=== PATIENT | male | born 1965 | race Caucasian/White ===

== ENCOUNTER 2021-02-01 10:14 | Emergency (ER) | payer OTHER ==
[~2021-02-01] VITALS: Ht 188 cm; Wt 73.5 kg
--- OUTSIDE RECORDS SUMMARY | 2021-02-01 10:18 | XMS ---
PreManage Notification: ROGER MARTINEZ Security Price Analyst Events No recent Security Events currently on file CRITERIA MET - SUDHIRP CARE PROVIDERS CELESTINE BONILLA Internal Medicine Current PHONE: Unknown Ramon has no Care Guidelines for this patient. EDeven VISIT COUNT (12 MO.) 1 RADHA Palumbo TOTAL 1 NOTE: Visits indicate total known visits. ED/UCC VISIT TRACKING (12 MO.) 02/01/2021 10:15 RADHA Hernandez OR TYPE: Emergency COMPLAINT: - LUMP IN CHEST, DIFFICULTY BREATHING, PAIN INPATIENT VISIT TRACKING (12 MO.) No inpatient visits to display in this time frame [email or web address]
== END 2021-02-01 14:23 | disposition home or self-care (01) ==
LOC: ED 10:14
DX: R07.89 Other chest pain (principal); R23.3 Spontaneous ecchymoses; I10 Essential (primary) hypertension
CPT/HCPCS: 71046; 80053; 85025; 99285-25

== ENCOUNTER 2023-01-08 05:40 | Day surgery (SDC) | payer MEDICARE ==
[2023-01-06 08:04] VITALS: BP 164/92
[~2023-01-08] VITALS: Ht 188 cm; Wt 75.9 kg
[~2023-01-08 05:40] MED LIST: CYCLOBENZAPRINE10 MG PO; HYDROCODON-ACE1 EA10 PO; LAMICTAL100 MG PO; NEURONTIN100 MG PO; NORVASC10 MG PO
[2023-01-08 05:58] VITALS: BP 165/97
[2023-01-08 08:12] VITALS: BP 150/98
--- NOTE | 2023-01-08 13:59 | OR ---
[facility] [address], [place] [address] Signed DATE OF OPERATION: 01/08/2023 SURGEON: Ovidio Roberts MD PREOPERATIVE DIAGNOSIS: Screening. POSTOPERATIVE DIAGNOSIS: Moderate internal hemorrhoids. PROCEDURE: Colonoscopy with hot biopsy. ESTIMATED BLOOD LOSS: None. INDICATIONS FOR THE PROCEDURE: Roger is a 57-year-old gentleman, who has moved out to [place], [place] from the [place] area. He was asked to see me by his doctor in [place] to come for his initial screening colonoscopy. He has no lower GI complaints. There is no family history of colon cancer or polyps. Apparently, he has had some weight loss. In the office, I gave him a pamphlet on colonoscopy. We had reviewed it together. There is risk including, but not limited to gas bloating, crampy abdominal pain, bleeding, perforation requiring surgery, and missed diagnosis. 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 He is requiring daily narcotics for pain control. Consequently, we asked for monitored anesthesia care, which proved to be a mancia decision today. He expressed understanding and wished to proceed. DESCRIPTION OF PROCEDURE: Roger was taken into our endoscopy suite and placed in the left lateral decubitus position. He was given monitored anesthesia care, propofol infusion per our nurse eye care professional. A digital rectal exam was performed and he did not have any external hemorrhoids. Good sphincter tone. His prostate was moderately indurated and enlarged. The left was more prominent than the right. The adult colonoscope was introduced and advanced under direct visualization of camera. It took just a little extra propofol and some kfhy-ej-qkwyfazl abdominal compression to get the scope around and down into the cecum itself. We had to pull the scope back and forth a few times to straighten out the colon. His prep was quite excellent. We could easily see the appendiceal orifice and ileocecal valve. The scope was then slowly withdrawn. We saw no pathology throughout the entire colon or rectum. Once in the rectum, the scope had been retroflexed and he Electronically Signed By: OVIDIO ROBERTS MD 01/08/23 1359 PATIENT NAME: ROGER MARTINEZ OPERATIVE REPORT DATE OF : 61 REPORT #: [id number] PHYSICIAN: OVIDIO ROBERTS MD PCP: CELESTINE BONILLA DO REPORT IS CONFIDENTIAL AND NOT TO BE RELEASED WITHOUT AUTHORIZATION [facility] [address], [place] [address] Phyllis does have moderate internal hemorrhoid columns. After this, the gas was suctioned out. The colonoscope removed. Roger tolerated the procedure quite well. RECOMMENDATIONS: Roger will return in 10 years for repeat screening colonoscopy. He will always needs monitored anesthesia care. MD VICTOR M Cohen/LACY /[id number] cc: MD Celestine Cohen D.OYazmin [facility] Patient Chart Copies: OVIDIO ROBERTS MD ~ Electronically Signed By: OVIDIO ROBERTS MD 01/08/23 1359 PATIENT NAME: ROGER MARTINEZ OPERATIVE REPORT DATE OF : 61 REPORT #: [id number] PHYSICIAN: OVIDIO ROBERTS MD PCP: CELESTINE BONILLA DO REPORT IS CONFIDENTIAL AND NOT TO BE RELEASED WITHOUT AUTHORIZATION
== END 2023-01-08 08:20 | disposition home or self-care (01) ==
LOC: DS 05:40 → OPS 05:40 → DS 07:30 → OPS 08:20 → DS 09:00
PROVIDERS: ATTEND Colon & Rectal Surgery
PROC: 0DJD8ZZ Inspection of Lower Intestinal Tract, Via Natural or Artificial Opening Endoscopic (ICD-10-PCS; principal; 2023-01-08 07:30)
DX: Z12.11 Encounter for screening for malignant neoplasm of colon (principal); F32.A Depression, unspecified; K21.9 Gastro-esophageal reflux disease without esophagitis; I10 Essential (primary) hypertension; B07.9 Viral wart, unspecified; K64.8 Other hemorrhoids
CPT/HCPCS: 00811; J2704